=== PATIENT | female | born 1980 | race Caucasian/White ===

== ENCOUNTER 2017-03-24 13:20 | Emergency (ER) | payer BC, OTHER ==
[2017-03-24 13:33] VITALS: TEMP 98.8; BMI 27.8
--- NOTE | 2017-03-24 14:06 | PDOC ---
Attending Attestation - Resident Resident Name: Dru Sanchez - ED Attending Attestation I have performed the following: I have examined & evaluated the patient, The case was reviewed & discussed with the resident, I agree w/resident's findings & plan, Exceptions are as noted - HPI HPI: 03/24/17 14:06 36yo F unclear LMP but positive UPT 03/06/17 p/w vaginal spotting last night and vaginal bleeding since this morning. Mostly notices bleeding after urinating. Bleeding a/w LBP and cramping. Passing some clots, has been using pantyliners which she has been changing every 2 hours. Has first OB appointment at [facility] on Saturday. Denies fevers, chills, headache, CP, SOB, abd pain, LE edema, dysuria. - Physicial Exam PE: 03/24/17 14:35 GENERAL: Awake, alert, and fully oriented, in no acute distress HEAD: No signs of trauma EYES: PERRLA, EOMI, sclera anicteric, conjunctiva clear ENT: Auricles normal inspection, hearing grossly normal, nares patent, oropharynx clear without exudates. Moist mucosa NECK: Normal ROM, supple, no lymphadenopathy, JVD, or masses LUNGS: Breath sounds equal, clear to auscultation bilaterally. No wheezes, and no crackles HEART: Regular rate and rhythm, normal S1 and S2, no murmurs, rubs or gallops ABDOMEN: Soft, nontender, normoactive bowel sounds. No guarding, no rebound. No masses CENTER ADMINISTRATOR: performed with Dr. Sanchez. +blood in vaginal vault, no pooling in speculum, os is closed. No uterine or adnexal ttp. EXTREMITIES: Normal range of motion, no edema. No clubbing or cyanosis. No cords, erythema, or tenderness NEUROLOGICAL: Normal speech, cranial nerves intact, negative pronator drift, 5/ 5 strength in all 4 extremities, normal sensation to light touch in all 4 extremities, normal cerebellar exam, normal gait, normal reflexes and tone SKIN: Warm, Dry, normal turgor, no rashes or lesions noted. - Medical Decision Making 03/24/17 14:39 36-year-old female presents with of unknown dates as well as vaginal bleeding and low back pain and cramping. Exam with blood in the vaginal vault and closed os. Likely threatened versus vaginal bleeding of . -labs -type and screen -UA -TVUS -reassess 03/24/17 16:45 Laboratory Last Values WBC 8.8 K/mm3 (4.0-10.0) 03/24/17 14:00 RBC 4.29 M/mm3 (3.60-5.2) D 03/24/17 14:00 Hgb 12.8 GM/dL (10.7-15.3) D 03/24/17 14:00 Hct 38.4 % (32.4-45.2) D 03/24/17 14:00 MCV 89.5 fl (80-96) 03/24/17 14:00 MCH 29.9 pg (25.7-33.7) 03/24/17 14:00 MCHC 33.4 g/dl (32.0-36.0) 03/24/17 14:00 RDW 13.3 % (11.6-15.6) D 03/24/17 14:00 Plt Count 207 K/MM3 (134-434) D 03/24/17 14:00 MPV 8.0 fl (7.5-11.1) 03/24/17 14:00 Neutrophils % 73.1 % (42.8-82.8) 03/24/17 14:00 Lymphocytes % 18.8 % (8-40) 03/24/17 14:00 Monocytes % 6.0 % (3.8-10.2) 03/24/17 14:00 Eosinophils % 1.7 % (0-4.5) 03/24/17 14:00 Basophils % 0.4 % (0-2.0) 03/24/17 14:00 Sodium 140 mmol/L (136-145) 03/24/17 14:00 Potassium 3.7 mmol/L (3.5-5.1) 03/24/17 14:00 Chloride 105 mmol/L (98-107) 03/24/17 14:00 Carbon Dioxide 26 mmol/L (21-32) 03/24/17 14:00 Anion Gap 9 (8-16) 03/24/17 14:00 BUN 11 mg/dL (7-18) 03/24/17 14:00 Creatinine 0.6 mg/dL (0.55-1.02) 03/24/17 14:00 Creat Clearance w eGFR > 60 (>60) 03/24/17 14:00 Random Glucose 92 mg/dL (74-106) 03/24/17 14:00 Calcium 8.6 mg/dL (8.5-10.1) 03/24/17 14:00 Total Bilirubin 0.6 mg/dL (0.2-1.0) 03/24/17 14:00 AST 11 U/L (15-37) L 03/24/17 14:00 ALT 24 U/L (12-78) 03/24/17 14:00 Alkaline Phosphatase 76 U/L (45-117) 03/24/17 14:00 Total Protein 7.3 g/dl (6.4-8.2) 03/24/17 14:00 Albumin 4.0 g/dl (3.4-5.0) 03/24/17 14:00 Beta HCG, Quant 939.4 mIU/ml 03/24/17 14:00 Serum , Qual Positive 03/24/17 13:55 Urine Color Ltyellow 03/24/17 13:55 Urine Appearance Clear 03/24/17 13:55 Urine pH 6.0 (5.0-8.0) 03/24/17 13:55 Urine Protein Negative (NEGATIVE) 03/24/17 13:55 Urine Glucose (UA) Negative (NEGATIVE) 03/24/17 13:55 Urine Ketones Negative (NEGATIVE) 03/24/17 13:55 Urine Blood 3+ (NEGATIVE) H 03/24/17 13:55 Urine Nitrite Negative (NEGATIVE) 03/24/17 13:55 Urine Bilirubin Negative (NEGATIVE) 03/24/17 13:55 Urine Urobilinogen Negative mg/dL (0.2-1.0) 03/24/17 13:55 Ur Leukocyte Esterase Negative (NEGATIVE) 03/24/17 13:55 Urine RBC <1 /hpf (0-3) 03/24/17 13:55 Urine WBC 2 /hpf (3-5) 03/24/17 13:55 Ur Epithelial Cells Rare /hpf (FEW) 03/24/17 13:55 Urine Bacteria Rare /hpf (NONE SEEN) 03/24/17 13:55 Urine Mucus Rare 03/24/17 13:55 Blood Type O NEGATIVE 03/24/17 14:25 Antibody Screen Negative 03/24/17 14:25 Unit Expiration Date [id number] 03/24/17 14:25 Type and screen Rh-. Patient ordered for Rhogam. Labs otherwise unremarkable. UA negative for infection. Transvaginal ultrasound with intrauterine about 5 weeks and 5 days in age. No cardiac activity seen and thus differential includes embryonic demise versus viable . Patient was informed of the results of the ultrasound and plans to follow-up with her OB doctor on Saturday. She has not had any heavy bleeding while in the emergency department but continues to have some spotting. I gave the patient return precautions if her bleeding is heavy or if she has any new or concerning symptoms. I discussed the physical exam findings, ancillary test results and final diagnoses with the patient. I answered all of the patient's questions. The patient was satisfied with the care received and felt comfortable with the discharge plan and treatment plan. The patient will call their primary care physician within 24 hours to arrange follow-up and will return to the Emergency Department with any new, persistent or worsening symptoms.
[2017-03-24 14:23] LABS: BASOPHIL 0.4 % (0-2.0); EOSINOPHIL 1.7 % (0-4.5); MCH 29.9 pg (25.7-33.7); MCHC 33.4 g/dl (32.0-36.0); MEAN CELL VOLUME 89.5 fl (80-96); NEUTROPHILS 73.1 % (42.8-82.8); PLATELET COUNT 207 K/MM3 (134-434); RDW 13.3 % (11.6-15.6); WHITE BLOOD COUNT 8.8 K/mm3 (4.0-10.0)
[2017-03-24 14:28] LABS: URINE APPEARANCE CLEAR; URINE BILIRUBIN NEGATIVE (NEGATIVE); URINE BLOOD 3+ (NEGATIVE); URINE COLOR LTYELLOW; URINE GLUCOSE (UA) NEGATIVE (NEGATIVE); URINE KETONE NEGATIVE (NEGATIVE); URINE LEUK ESTERASE NEGATIVE (NEGATIVE); URINE NITRITE NEGATIVE (NEGATIVE); URINE PROTEIN NEGATIVE (NEGATIVE); URINE UROBILINOGEN NEGATIVE mg/dL (0.2-1.0)
--- NOTE | 2017-03-24 14:29 | PDOC ---
History of Present Illness - General History Source: Patient Exam Limitations: No Limitations - History of Present Illness Initial Comments: 03/24/17 14:29 The patient is a 36F with unsure LMP and positive preg test (03/06/17) who presents with bleeding that started last night. Last night the patient states that she had spotting which progressed to bleeding this morning. She is using panty liners for protection and changes them every hour. She has also been passing small clots. She notices the bleeding more after she uses the bathroom. She has not seen an OB since her last termination in Jun 2016. She has an appointment with an OB at [facility] on Saturday. All: none Soc: none <Dru Sanchez - Last Filed: 03/24/17 16:50> <Tati Perez - Last Filed: 03/24/17 16:57> - General Chief Complaint: Vaginal Bleeding Stated Complaint: POSSIBLE MISCARRIAGE Time Seen by Provider: 03/24/17 13:39 Past History - Past Medical History Asthma: No Cancer: No Cardiac Disorders: No Diabetes: No HTN: No Seizures: No Thyroid Disease: No - Psycho/Social/Smoking Cessation Hx Anxiety: No Suicidal Ideation: No Smoking History: Never smoked Have you smoked in the past 12 months: No Hx Alcohol Use: No Drug/Substance Use Hx: No Substance Use Type: None Hx Substance Use Treatment: No <Dru Sanchez - Last Filed: 03/24/17 16:50> <Tati Perez - Last Filed: 03/24/17 16:57> - Past Medical History Allergies/Adverse Reactions: Allergies Allergy/AdvReac Type Severity Reaction Status Date / Time No Known Allergies Allergy Verified 03/24/17 14:52 Review of Systems - Review of Systems Able to Perform ROS?: Yes Is the patient limited Divehi proficient: No Constitutional: No: Chills, Fever ABD/GI: Yes: Other (abd cramping). No: Nausea, Vomiting : Yes: Other (vaginal bleeding). No: Burning, Dysuria, Discharge Musculoskeletal: Yes: Back Pain (low) <Dru Sanchez - Last Filed: 03/24/17 16:50> *Physical Exam - Vital Signs Last Vital Signs Temp Pulse Resp BP Pulse Ox 98.8 F 93 H 20 117/68 100 03/24/17 13:31 03/24/17 13:31 03/24/17 13:31 03/24/17 13:31 03/24/17 13:31 - Physical Exam General Appearance: Yes: Nourished, Appropriately Dressed. No: Apparent Distress HEENT: positive: Normal ENT Inspection, Hearing Grossly Normal Neck: positive: Supple Respiratory/Chest: positive: Lungs Clear, Normal Breath Sounds. negative: Chest Tender, Respiratory Distress, Crackles, Rales, Rhonchi, Stridor, Wheezing Cardiovascular: positive: Regular Rhythm, Regular Rate, S1, S2. negative: Bradycardia, Tachycardia, Diastolic Murmur, Systolic Murmur Female Pelvic Exam: positive: normal external exam, cervical os closed Gastrointestinal/Abdominal: positive: Flat, Soft. negative: Tender, Increased Bowel Sounds, Protuberent, Distended, Guarding, Rebound Musculoskeletal: negative: CVA Tenderness, CVA Tenderness (R), CVA Tenderness (L ) Extremity: positive: Normal Inspection, Normal Range of Motion. negative: Swelling, Calf Tenderness Integumentary: positive: Dry, Warm Neurologic: positive: Fully Oriented, Alert, Normal Mood/Affect, Motor Strength 5/5 <Dru Sanchez - Last Filed: 03/24/17 16:50> - Vital Signs Last Vital Signs Temp Pulse Resp BP Pulse Ox 98.8 F 93 H 20 117/68 100 03/24/17 13:31 03/24/17 13:31 03/24/17 13:31 03/24/17 13:31 03/24/17 13:31 <Tati Perez - Last Filed: 03/24/17 16:57> ED Treatment Course - LABORATORY CBC & Chemistry Diagram: 03/24/17 14:00 03/24/17 14:00 <Dru Sanchez - Last Filed: 03/24/17 16:50> - LABORATORY CBC & Chemistry Diagram: 03/24/17 14:00 03/24/17 14:00 - ADDITIONAL ORDERS Additional order review: Laboratory Results 03/24/17 03/24/17 03/24/17 14:25 14:00 14:00 Sodium 140 Potassium 3.7 Chloride 105 Carbon Dioxide 26 Anion Gap 9 BUN 11 Creatinine 0.6 Creat Clearance w eGFR > 60 Random Glucose 92 Calcium 8.6 Total Bilirubin 0.6 AST 11 L ALT 24 Alkaline Phosphatase 76 Total Protein 7.3 Albumin 4.0 Beta HCG, Quant 939.4 Serum , Qual Urine Color Urine Appearance Urine pH Urine Protein Urine Glucose (UA) Urine Ketones Urine Blood Urine Nitrite Urine Bilirubin Urine Urobilinogen Ur Leukocyte Esterase Urine RBC Urine WBC Ur Epithelial Cells Urine Bacteria Urine Mucus Blood Type O NEGATIVE Antibody Screen Negative Unit Expiration Date [id number] 03/24/17 13:55 Sodium Potassium Chloride Carbon Dioxide Anion Gap BUN Creatinine Creat Clearance w eGFR Random Glucose Calcium Total Bilirubin AST ALT Alkaline Phosphatase Total Protein Albumin Beta HCG, Quant Serum , Qual Positive Urine Color Ltyellow Urine Appearance Clear Urine pH 6.0 Urine Protein Negative Urine Glucose (UA) Negative Urine Ketones Negative Urine Blood 3+ H Urine Nitrite Negative Urine Bilirubin Negative Urine Urobilinogen Negative Ur Leukocyte Esterase Negative Urine RBC <1 Urine WBC 2 Ur Epithelial Cells Rare Urine Bacteria Rare Urine Mucus Rare Blood Type Antibody Screen Unit Expiration Date 03/24/17 14:00 RBC 4.29 D MCV 89.5 MCHC 33.4 RDW 13.3 D MPV 8.0 Neutrophils % 73.1 Lymphocytes % 18.8 Monocytes % 6.0 Eosinophils % 1.7 Basophils % 0.4 <Tati Perez - Last Filed: 03/24/17 16:57> Medical Decision Making - Medical Decision Making 03/24/17 14:48 The patient is a 36F with unknown LMP who presents with irregular periods and bleeding. Her vaginal vault had blood but the cervical os was close. Pos preg test on March 06. I have ordered labs and will order imaging based on hcg quant. 03/24/17 16:50 US shows IUP with no cardiac activity with an estimated GA of 5w5d. Attending will speak with the patient about these results. <Dru Sanchez - Last Filed: 03/24/17 16:50> *DC/Admit/Observation/Transfer <Dru Sanchez - Last Filed: 03/24/17 16:50> - Discharge Dispostion Admit: No - Attestations Physician Attestion: 03/24/17 16:56 I, Dr. Tati Perez MD, attest that this document has been prepared under my direction and personally reviewed by me in its entirety. I further attest, that it accurately reflects all work, treatment, procedures and medical decision -making performed by me. <NyaramonDanielalbino - Last Filed: 03/24/17 16:57> Diagnosis at time of Disposition: Vaginal bleeding - Discharge Dispostion Disposition: HOME Condition at time of disposition: Stable - Patient Instructions Additional Instructions: Follow-up with your OB doctor as planned on Saturday03/27/17. Also follow-up with you primary care doctor within 1-2 days. If you are soaking through 3 pads every hour for 3 or more hours please return to the emergency department immediately.Also, return to the emergency department immediately for any new or concerning symptoms or if your symptoms get worse - Post Discharge Activity Work/School Note: Back to Work
[2017-03-24 14:30] LABS: URINE BACTERIA RARE /hpf (NONE SEEN); URINE MUCUS RARE; URINE RBC <1 /hpf (0-3); URINE WBC 2 /hpf (3-5)
[2017-03-24 14:51] LABS: ANION GAP 9 (8-16); CALCIUM 8.6 mg/dL (8.5-10.1); CO2 26 mmol/L (21-32); CREATININE 0.6 mg/dL (0.55-1.02); GLUCOSE,RANDOM 92 mg/dL (74-106); SGOT/AST 11 U/L (15-37); SGPT/ALT 24 U/L (12-78)
[2017-03-24 14:52] LABS: ALK PHOS 76 U/L (45-117); BILIRUBIN,TOTAL 0.6 mg/dL (0.2-1.0); TOT PROT 7.3 g/dl (6.4-8.2)
[2017-03-24] MEDS ORDERED: RHO(D) IMMUNE GLOBULIN 1,500 UNIT DISP.SYRIN IM ONE (16:18)
[2017-03-24 17:28] VITALS: BP 100/68; PULSE 72
== END 2017-03-24 17:28 | disposition home or self-care (01) ==
LOC: JER 13:20
PROC: 3E0234Z Introduction of Serum, Toxoid and Vaccine into Muscle, Percutaneous Approach (ICD-10-PCS; principal; 2017-03-24)
DX: O26.891 Other specified pregnancy related conditions, first trimester (principal); O20.8 Other hemorrhage in early pregnancy; O36.0910 Maternal care for other rhesus isoimmunization, first trimester, not applicable or unspecified; Z3A.01 Less than 8 weeks gestation of pregnancy
CPT/HCPCS: 36415; 76817-TC; 80053; 81003; 81015; 84702; 84703; 85025; 86850; 86900; 86901; 86999; 87086; 87491; 87591; 99282-25; J1561

== ENCOUNTER 2017-12-25 05:55 | Inpatient (IN) | payer BC, OTHER ==
[2017-12-25] MEDS ORDERED: AMPICILLIN - 2 GM in SODIUM CHLORIDE 100 ML IVPB ONE (06:00)
[2017-12-25] MEDS ORDERED: DEXTROSE 5%-LACTATED RINGERS 1,000 ML IV ONE (06:05)
[2017-12-25 06:34] VITALS: BMI 32.1
[2017-12-25 07:20] LABS: BASO % 0.3 % (0-2.0); EOS % 0.9 % (0-4.5); HEMATOCRIT 35.4 % (32.4-45.2); HEMOGLOBIN 11.9 GM/dL (10.7-15.3); LYMPH % 10.9 % (8-40); MCHC 33.7 g/dl (32.0-36.0); MEAN CELL VOLUME 85.8 fl (80-96); MEAN PLT VOLUME 8.4 fl (7.5-11.1); MONO % 5.3 % (3.8-10.2); NEUT % 82.6 % (42.8-82.8); PLATELET COUNT 203 K/MM3 (134-434); RBC 4.12 M/mm3 (3.60-5.2); WHITE BLOOD COUNT 13.3 K/mm3 (4.0-10.0)
[2017-12-25] MEDS ORDERED: ELECTROLYTE-148 SOLN 1,000 ML IV SCH (07:30)
[2017-12-25] MEDS ORDERED: FENTANYL/BUPIVACAINE/NS/PF - PCEA - 50 ML DISP.SYRIN EP ONE (07:33)
[2017-12-25 07:40] LABS: INR 0.9 (0.82-1.09); PROTHROMBIN TIME (PATIENT) 10.2 SEC (9.7-13.0)
--- NOTE | 2017-12-25 07:41 | HP ---
Past Medical History - Primary Care Physician PCP:: Kirk Kimball - Admission Chief Complaint: 37yo P6 with at EGA 39.5wks with spontaneous active labor. 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: Alzheimer's, CVA, Dementia, Migraine, Multiple Sclerosis, Peripheral Neuropathy, Parkinson's, Seizure, Syncope, TIA, Vertigo, Other Cardiovascular: No: AFIB, Aneurysm, Aortic Insufficiency, Aortic Stenosis, CAD, CHF, Deep Vein Thrombosis, HTN, Hyperlipdemia, MS, Mitral Insufficiency, Mitral Stenosis, Murmur, Pulmonary Hypertension, Other Pulmonary: No: Asthma, Bronchitis, Cancer, COPD, O2 Dependent, Pneumonia, Previously Intubated, Pulmonary Embolus, Pulmonary Fibrosis, Sleep Apnea, Other Gastrointestinal: No: Ascites, Cancer, Constipation, Crohn's Disease, Diverticulitis, Diverticulosis, Esophageal Varices, Gastritis, GERD, GI Bleed, Hemorrhoids, Hiatal Hernia, Inflamatory Bowel Disease, Irritable Bowel Disease, Pancreatitis, Peptic Ulcer Disease, Ulcerative Colitis, Other Hepatobiliary: No: Cirrhosis, Cholelithiasis, Cholecystitis, Choledocholithiasis , Hepatitis A, Hepatitis B, Hepatitis C, Other Renal/: No: Renal Failure, Renal Inusuff, BPH, Cancer, Hematuria, Hemodialysis , Neurogenic Bladder, Renal Calculi, UTI, Other ...: 13 ...Para: 6 ( x 6) ...Term: 6 ...Spon : 2 ...Induced : 4 ...LMP: 02/05/17 ...EDC by Dates: 11/12/17 ...EDC by Sono: 12/27/17 Heme/Onc: No: Anemia, B12 Deficiency, Bleeding Disorder, Cancer, Current Chemotherapy, Current Radiation Therapy, Hemochromatosis, Hypercoaguable State, Myeloproliferative Synd, Sickle Cell Disease, Sickle Cell Trait, Thrombocytopenia, Other Infectious Disease: No: AIDS, C-Diff, Herpes Zoster, HIV, MRSA, STD's, Tuberculosis, VREF, Other Psych: No: Addictions, Anxiety, Bipolar, Depression, Panic, Psychosis, Schizophrenia, Other Musculoskeletal: No: Bursitis, Chronic low back pain, Hemiparesis, Hemiplegia, Osteoarthritis, Paraplegia, Other Rheumatology: No: Fibromyalgia, Gout, Lupus, Rheumatoid Arthritis, Sarcoidosis, Vasculitis, Other ENT: No: Allergic Rhinitis, Sinusitis, Other Endocrine: No: Robinson's Disease, Glenburn's Disease, Diabetes Insipidus, Diabetes Mellitus, Hyperparathyroidism, Hyperthyroidism, Hypothyroidism, Osteopenia, SIADH, Other Dermatology: No: Basal Cell, Cellulitis, Eczema, Melanoma, Psoriasis, Squamous Cell, Other - Past Surgical History Past Surgical History: Yes: None Hx Myomectomy: No Hx Transabdominal Cerclage: No - Smoking History Smoking history: Never smoked Have you smoked in the past 12 months: No - Alcohol/Substance Use Hx Alcohol Use: No History of Substance Use: reports: None - Social History Usual Living Arrangement: Yes: With Spouse, With Child ADL: Independent History of Recent Travel: No Home Medications - Allergies Allergies/Adverse Reactions: Allergies Allergy/AdvReac Type Severity Reaction Status Date / Time No Known Allergies Allergy Verified 03/24/17 14:52 - Home Medications Home Medications: Ambulatory Orders 19 Tablet 1 tab PO DAILY 12/25/17 Family Disease History - Family Disease History Family History: Denies Review of Systems - Review of Systems Constitutional: reports: Other (Labor) Eyes: reports: No Symptoms HENT: reports: No Symptoms Neck: reports: No Symptoms Cardiovascular: reports: No Symptoms Respiratory: reports: No Symptoms Gastrointestinal: reports: No Symptoms Genitourinary: reports: No Symptoms Breasts: reports: No Symptoms Reported Musculoskeletal: reports: No Symptoms Integumentary: reports: No Symptoms Neurological: reports: No Symptoms Endocrine: reports: No Symptoms Hematology/Lymphatic: reports: No Symptoms Psychiatric: reports: No Symptoms Pain Intensity: 8 Physical Exam - Maternity Vital Signs: Vital Signs Temperature 98.3 F 12/25/17 06:38 Pulse Rate 102 H 12/25/17 06:38 Respiratory Rate 20 12/25/17 06:38 Blood Pressure 118/72 12/25/17 06:38 O2 Sat by Pulse Oximetry (%) Constitutional: Yes: Well Nourished, No Distress, Calm Eyes: Yes: WNL, Conjunctiva Clear HENT: Yes: WNL, Atraumatic, Normocephalic Neck: Yes: WNL, Supple, Trachea Midline Cardiovascular: Yes: WNL, Regular Rate and Rhythm Lungs: Clear to auscultation, Normal air movement Breast(s): Yes: WNL - Abdominal Exam/OB Fundal Height: 39 Number of Fetuses: Single Presentation: Vertex Contractions: Yes Regularity: Regular Intensity: Mod/Strong Monitor Mode: External Heart Rate (range): 130 Heart Rate Location: Midline Category: I Accelerations: Uniform Decelerations: None - Vaginal Exam/OB Vaginal Bleediing: No Speculum Exam: No Dilatation (cm): 5 Effacement (%): 90 Amniotic Membrane Status: Intact Presentation: Vertex/Position Station: 0 - Physical Exam Musculoskeletal: Yes: WNL Extremities: Yes: WNL Edema: No Integumentary: Yes: WNL Deep Tendon Reflex Grade: Normal +2 ...Motor Strength: WNL Psychiatric: Yes: WNL, Alert, Oriented - Labs Lab Results: CBC, BMP 12/25/17 07:05 Hemorrhage Risk Assessment - Risk Factors Medium Risk Factors: Yes: Greater than 4 previous births High Risk Factors: Yes: None Risk Score: 1 Risk Level: Medium Risk Imaging - Results Ultrasound: Report Reviewed Assessment/Plan 37yo P6 with at EGA 39.5wks with spontaneous active labor. Pt requested epidural. Fetus with category I tracing and requires no intervention. Abx given for GBS prophylaxis. Anticipate .
[2017-12-25 07:43] LABS: ACTIVATED PTT 17.7 SECONDS (26.9-34.4)
[2017-12-25 07:54] LABS: ANION GAP 9 (8-16); BLOOD UREA NITROGEN 10 mg/dL (7-18); CALCIUM 8.3 mg/dL (8.5-10.1); CHLORIDE 107 mmol/L (98-107); CO2 21 mmol/L (21-32); CREATININE 0.7 mg/dL (0.55-1.02); GLUCOSE,RANDOM 88 mg/dL (74-106); SODIUM 137 mmol/L (136-145)
--- NOTE | 2017-12-25 08:33 | PN ---
Ante-Partal Exam - Subjective Subjective: No complaints, s/p epidural Vital Signs: Vital Signs Temperature 98.3 F 12/25/17 06:38 Pulse Rate 102 H 12/25/17 06:38 Respiratory Rate 20 12/25/17 06:38 Blood Pressure 118/72 12/25/17 06:38 O2 Sat by Pulse Oximetry (%) Bleeding: No Headache: No Visual changes: No Right upper quadrant pain: No Pain (scale 1-10): 2 - Contractions Contractions: Yes Regularity: Regular Intensity: Moderate Monitor Mode: External - Exam during Labor Heart Rate: 140 Variability: Moderate Heart Rate Location: Midline Category: I Monitor Accelerations: Present Monitor Decelerations: None Exam: Vaginal Dilatation (cm): 9 Effacement (%): 90 Amniotic Membrane Status: Ruptured (AROM) Amniotic Fluid: Clear Presentation: Vertex Station: 0 - Intrapartum Hemorrhage Risk High Risk Factors: None Risk Score: 0 Risk Level: Low Risk - Assessment/Plan Assessment/Plan: 37yo P6 with active labor. Fetus requires no intervention. Labor progressing
[2017-12-25] MEDS ORDERED: NALOXONE HCL 0.4 MG/ML VIAL IVPUSH PRN (08:35)
[2017-12-25] MEDS ORDERED: OXYTOCIN 20 UNITS in 0.9% NS 20 UNIT/1,000 ML INFUS.BAG IV ONE (08:37)
[2017-12-25] MEDS ORDERED: LIDOCAINE HCL 1% PRESERVATIVE FREE - 30ML VIAL ONE (08:37)
[2017-12-25] MEDS ORDERED: FENTANYL/BUPIVACAINE/NS/PF - PCEA - 50 ML DISP.SYRIN EP SCH (08:45)
[2017-12-25] MEDS ORDERED: OXYTOCIN 30 UNITS in 0.9% NS 30 UNIT/500 ML INFUS.BAG IVPB ONE (08:59)
[2017-12-25] MEDS ORDERED: IBUPROFEN 600 MG TABLET (FP) PO PRN (10:39)
[2017-12-25] MEDS ORDERED: BENZOCAINE 28 GM HEMORRHOIDAL OINTMENT TP PRN (10:39)
[2017-12-25] MEDS ORDERED: WITCH HAZEL 50% (TUCKS) 40 PAD/JAR PAD TP PRN (10:39)
[2017-12-25] MEDS ORDERED: BISACODYL 10 MG SUPP.RECT RC PRN (10:39)
[2017-12-25] MEDS ORDERED: BENZOCAINE 20% 57 GM BOTTLE TP PRN (10:39)
[2017-12-25] MEDS ORDERED: METHYLERGONOVINE MALEATE 0.2 MG/1 ML AMP IM PRN (10:39)
[2017-12-25] MEDS ORDERED: ACETAMINOPHEN 325 MG TABLET (FP) PO PRN (10:39)
[2017-12-25] MEDS ORDERED: OXYTOCIN 30 UNITS in 0.9% NS 30 UNIT/500 ML INFUS.BAG IVPB SCH (10:45)
[2017-12-25] MEDS ORDERED: OXYTOCIN 20 UNITS in 0.9% NS 20 UNIT/1,000 ML INFUS.BAG IV SCH (10:45)
[2017-12-25] MEDS ORDERED: TUBERCULIN PPD 5 TU/0.1ML SYRINGE (IN PATIENT USE ONLY) ID ONE (11:45)
--- NOTE | 2017-12-25 12:04 | PN ---
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
[2017-12-26] MEDS: PRENATAL VITAMINS W/ FOLIC ACID TABLET (FP) PO SCH (09:51)
--- NOTE | 2017-12-26 09:57 | PN ---
Post Progress Note - Subjective Subjective: Patient without acute complaints. Reports tolerating oral intake without nausea or vomiting. Ambulating without dizziness. Denies fevers or chills. Pain well controlled with oral pain medication. without difficulty. Passing flatus. Post Day: 1 Type of Delivery: Vital Signs: Vital Signs Temperature 98.5 F 12/26/17 09:23 Pulse Rate 80 12/26/17 09:23 Respiratory Rate 18 12/26/17 09:23 Blood Pressure 111/75 12/26/17 09:23 O2 Sat by Pulse Oximetry (%) 100 12/25/17 10:50 Breast Exam: Yes: Soft Uterus: Yes: Fundus Firm Abdomen/GI: Yes: Abdomen soft, Passing flatus, Tolerating PO. No: Abdominal Distention, Tender Lochia: Yes: Serosa Lochia, amount: Small Extremities: Yes: Calves non-tender, Edema (+1) Activity: Ambulating - Labs Labs: CBC WBC 13.3 K/mm3 (4.0-10.0) H D 12/25/17 07:05 RBC 4.12 M/mm3 (3.60-5.2) 12/25/17 07:05 Hgb 11.9 GM/dL (10.7-15.3) 12/25/17 07:05 Hct 35.4 % (32.4-45.2) 12/25/17 07:05 MCV 85.8 fl (80-96) 12/25/17 07:05 MCH 29.0 pg (25.7-33.7) 12/25/17 07:05 MCHC 33.7 g/dl (32.0-36.0) 12/25/17 07:05 RDW 15.0 % (11.6-15.6) D 12/25/17 07:05 Plt Count 203 K/MM3 (134-434) 12/25/17 07:05 MPV 8.4 fl (7.5-11.1) 12/25/17 07:05 Neutrophils % 82.6 % (42.8-82.8) 12/25/17 07:05 Lymphocytes % 10.9 % (8-40) D 12/25/17 07:05 Monocytes % 5.3 % (3.8-10.2) 12/25/17 07:05 Eosinophils % 0.9 % (0-4.5) 12/25/17 07:05 Basophils % 0.3 % (0-2.0) 12/25/17 07:05 Nucleated RBC % 0 % (0-0) 12/25/17 07:05 Assessment/Plan 37 yo PPD # 1 s/p , afebrile, vital signs stable, doing well 1. Continue routine care. 2. AM CBC without anemia 3. Rh negative status, baby RH negative as well 4. Encourage ambulation 5. Continue oral pain medication 6. Anticipate discharge home day #2
[2017-12-26] MEDS ORDERED: DIPHTH,PERTUSS(ACELL),TET 0.5 ML DISP.SYRIN IM ONE (10:00)
[2017-12-26 10:26] LABS: BASO % 0.3 % (0-2.0); EOS % 0.7 % (0-4.5); HEMATOCRIT 31.1 % (32.4-45.2); HEMOGLOBIN 10.3 GM/dL (10.7-15.3); LYMPH % 14.2 % (8-40); MCH 28.9 pg (25.7-33.7); MCHC 33.2 g/dl (32.0-36.0); MEAN CELL VOLUME 86.9 fl (80-96); MEAN PLT VOLUME 8.4 fl (7.5-11.1); MONO % 4.9 % (3.8-10.2); NEUT % 79.9 % (42.8-82.8); PLATELET COUNT 199 K/MM3 (134-434); RBC 3.58 M/mm3 (3.60-5.2); RDW 15.5 % (11.6-15.6); WHITE BLOOD COUNT 10.4 K/mm3 (4.0-10.0)
[2017-12-26] MEDS ORDERED: SENNOSIDES/DOCUSATE COMBO (SENNA PLUS) TABLET (UD) PO PRN (22:00)
--- NOTE | 2017-12-27 06:48 | DS ---
Physical Exam-[facility] Vital Signs: Vital Signs Temperature 98.3 F 12/26/17 22:00 Pulse Rate 102 H 12/26/17 22:00 Respiratory Rate 18 12/26/17 22:00 Blood Pressure 113/72 12/26/17 22:00 O2 Sat by Pulse Oximetry (%) 100 12/25/17 10:50 Constitutional: Yes: Well Nourished, No Distress, Calm Eyes: Yes: WNL, Conjunctiva Clear, EOM Intact HENT: Yes: WNL, Atraumatic, Normocephalic Neck: Yes: WNL, Supple, Trachea Midline Cardiovascular: Yes: WNL, Regular Rate and Rhythm Respiratory: Yes: WNL, Regular, CTA Bilaterally Gastrointestinal: Yes: WNL ...Rectal Exam: Yes: WNL Renal/: Yes: WNL ....Post : Yes: Uterus firm, Uterus non-tender, Slight lochia rubra Breast(s): Yes: WNL Musculoskeletal: Yes: WNL Extremities: Yes: WNL Edema: No Integumentary: Yes: WNL Neurological: Yes: WNL, Alert, Oriented ...Motor Strength: WNL Psychiatric: Yes: WNL, Alert, Oriented Labs: CBC, BMP 12/26/17 09:30 12/25/17 07:05 Delivery - Delivery Vaginal Delivery: No Problems, Spontaneous Type of Anesthesia: Epidural Episiotomy/Laceration: None EBL (cc): 300 Delivery, Single - Stages of Labor Date 1st Stage Initiatied: 12/25/17 Time 1st Stage Initiated: 01:00 Date 2nd Stage Initiated: 12/25/17 Time 2nd Stage Initiated: 08:55 Date of Delivery: 12/25/17 Time of Delivery: 09:08 Time Placenta Delivered: 09:10 Placenta: Yes: Spontaneous, Normal Configuration - 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 Gender: Female Weight: 6 lb 3 oz Position: Left, OA Total Hours ROM (Hrs/Mins): 40min - 1 Minute Total Score: 9 5 Minutes Total Score: 9 - Feeding Plan Initial Plan: Exclusive throughout hospitalization Benefits of Exclusively reinforced: Yes Discharge Summary Reason For Visit: ADMIT LABOR Procedures: Principal: Other Procedures: no complication Condition: Good - Instructions Diet, Activity, Other Instructions: regular diet, follow up office 4 weeks, if fever, pain ,heavy vaginal bleeding call MD Referrals: Kirk Kimball MD [Staff Physician] - - Home Medications Comprehensive Discharge Medication List: Ambulatory Orders 19 Tablet 1 tab PO DAILY 12/25/17 Ibuprofen [Motrin -] 600 mg PO QID #28 tablet 12/26/17
[2017-12-27 08:53] VITALS: BP 106/59; PULSE 71; TEMP 98.9
[2017-12-27] MEDS: PRENATAL VITAMINS W/ FOLIC ACID TABLET (FP) PO SCH (09:11)
== END 2017-12-27 15:40 | disposition home or self-care (01) | DRG 775 ==
LOC: JLDR 05:55 → J3W 11:45
PROVIDERS: ADMIT Obstetrics & Gynecology; ATTEND Obstetrics & Gynecology
PROC: 10E0XZZ Delivery of Products of Conception, External Approach (ICD-10-PCS; principal; 2017-12-25)
DX: O80 Encounter for full-term uncomplicated delivery (principal); Z22.330 Carrier of Group B streptococcus; Z3A.39 39 weeks gestation of pregnancy; Z37.0 Single live birth
CPT/HCPCS: 36415; 59409; 80048; 85025; 85610; 85730; 86593; 86850; 86900; 86901

== ENCOUNTER 2020-01-23 21:35 | Inpatient (IN) | payer OTHER ==
[2020-01-23] MEDS ORDERED: DEXTROSE 5%-LACTATED RINGERS 500 ML IV ONE (22:00)
[2020-01-23] MEDS ORDERED: DEXTROSE 5%-LACTATED RINGERS 1,000 ML IV SCH ×2 (22:30→23:30)
[2020-01-23 22:38] LABS: BASO % 0.4 % (0-2.0); EOS % 1.4 % (0-4.5); HEMATOCRIT 33.8 % (32.4-45.2); LYMPH % 18.2 % (8-40); MCH 27.6 pg (25.7-33.7); MCHC 32.6 g/dl (32.0-36.0); MEAN CELL VOLUME 84.8 fl (80-96); MEAN PLT VOLUME 8.6 fl (7.5-11.1); MONO % 6.1 % (3.8-10.2); NEUT % 73.9 % (42.8-82.8); PLATELET COUNT 192 K/MM3 (134-434); RBC 3.98 M/mm3 (3.60-5.2); RDW 15.7 % (11.6-15.6); WHITE BLOOD COUNT 10.2 K/mm3 (4.0-10.0)
[2020-01-23 22:46] VITALS: BMI 32.9
[2020-01-23 22:46] LABS: PROTHROMBIN TIME (PATIENT) 11.8 SEC (9.7-13.0)
[2020-01-23 22:49] LABS: ACTIVATED PTT 22.8 SECONDS (25.2-36.5)
[2020-01-23 23:03] LABS: BLOOD UREA NITROGEN 8.1 mg/dL (7-18); CALCIUM 8.8 mg/dL (8.5-10.1); CREATININE 0.7 mg/dL (0.55-1.3); POTASSIUM 3.8 mmol/L (3.5-5.1)
--- NOTE | 2020-01-23 23:25 | HP ---
Past Medical History - Primary Care Physician PCP:: Kirk Kimball - Admission Chief Complaint: 39yo with at EGA 39w2d admitted with SROM in spontaneous labor. 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: No: Alzheimer's, CVA, Dementia, Migraine, Multiple Sclerosis, Peripheral Neuropathy, Parkinson's, Seizure, Syncope, TIA, Vertigo, Other Cardiovascular: No: AFIB, Aneurysm, Aortic Insufficiency, Aortic Stenosis, CAD, CHF, Deep Vein Thrombosis, HTN, Hyperlipdemia, OH, Mitral Insufficiency, Mitral Stenosis, Murmur, Pulmonary Hypertension, Other Pulmonary: No: Asthma, Bronchitis, Cancer, COPD, O2 Dependent, Pneumonia, Previously Intubated, Pulmonary Embolus, Pulmonary Fibrosis, Sleep Apnea, Other Gastrointestinal: No: Ascites, Cancer, Constipation, Crohn's Disease, Diverticulitis, Diverticulosis, Esophageal Varices, Gastritis, GERD, GI Bleed, Hemorrhoids, Hiatal Hernia, Inflamatory Bowel Disease, Irritable Bowel Disease, Pancreatitis, Peptic Ulcer Disease, Ulcerative Colitis, Other Hepatobiliary: No: Cirrhosis, Cholelithiasis, Cholecystitis, Choledocholithiasis, Hepatitis A, Hepatitis B, Hepatitis C, Other Renal/: No: Renal Failure, Renal Inusuff, BPH, Cancer, Hematuria, Hemodialysis, Neurogenic Bladder, Renal Calculi, UTI, Other ...: 13 ...Para: 7 ...Term: 7 ...: 0 ...Spon : 3 ...Induced : 2 ...Living Children: 7 ...Multiple Gestation: 0 ...LMP: 04/30/19 ... Weeks Gestation by Dates: 39.2 ...EDC by Dates: 02/04/20 ...EDC by Sono: 01/28/20 Heme/Onc: No: Anemia, B12 Deficiency, Bleeding Disorder, Cancer, Current Chemotherapy, Current Radiation Therapy, Hemochromatosis, Hypercoaguable State, Myeloproliferative Synd, Sickle Cell Disease, Sickle Cell Trait, Thrombocytopenia, Other Infectious Disease: No: AIDS, C-Diff, Herpes Zoster, HIV, MRSA, STD's, Tuberculosis, VREF, Other Psych: No: Addictions, Anxiety, Bipolar, Depression, Panic, Psychosis, Schizophrenia, Other Musculoskeletal: No: Bursitis, Chronic low back pain, Hemiparesis, Hemiplegia, Osteoarthritis, Paraplegia, Other Rheumatology: No: Fibromyalgia, Gout, Lupus, Rheumatoid Arthritis, Sarcoidosis, Vasculitis, Other ENT: No: Allergic Rhinitis, Sinusitis, Other Endocrine: No: Pitts[place]'s Disease, Kody's Disease, Diabetes Insipidus, Diabetes Mellitus, Hyperparathyroidism, Hyperthyroidism, Hypothyroidism, Osteopenia, SIADH, Other Dermatology: No: Basal Cell, Cellulitis, Eczema, Melanoma, Psoriasis, Squamous Cell, Other - Past Surgical History Past Surgical History: Yes: None Hx Myomectomy: No Hx Transabdominal Cerclage: No - Smoking History Smoking history: Never smoked Have you smoked in the past 12 months: No - Alcohol/Substance Use Hx Alcohol Use: No History of Substance Use: reports: None - Social History Usual Living Arrangement: Yes: With Spouse, With Child Do you think of yourself as: Straight/Heterosexual ADL: Independent History of Recent Travel: No Home Medications - Allergies Allergies/Adverse Reactions: Allergies Allergy/AdvReac Type Severity Reaction Status Date / Time No Known Allergies Allergy Verified 01/23/20 23:08 - Home Medications Home Medications: Ambulatory Orders 19 Tablet 1 tab PO DAILY 12/25/17 Ibuprofen [Motrin -] 600 mg PO QID #28 tablet 12/26/17 Family Medical History Family History: Unremarkable Review of Systems - Review of Systems Constitutional: reports: No Symptoms Eyes: reports: No Symptoms HENT: reports: No Symptoms Neck: reports: No Symptoms Cardiovascular: reports: No Symptoms Respiratory: reports: No Symptoms Gastrointestinal: reports: No Symptoms Genitourinary: reports: Other (Leaking fluids, contractions.) Breasts: reports: No Symptoms Reported Musculoskeletal: reports: No Symptoms Integumentary: reports: No Symptoms Neurological: reports: No Symptoms Endocrine: reports: No Symptoms Hematology/Lymphatic: reports: No Symptoms Psychiatric: reports: No Symptoms Pain Intensity: 6 Physical Exam - Maternity Vital Signs: Vital Signs Temperature 99.4 F 01/23/20 21:35 Pulse Rate 89 01/23/20 21:35 Respiratory Rate 18 01/23/20 21:35 Blood Pressure 129/79 01/23/20 21:35 O2 Sat by Pulse Oximetry (%) Constitutional: Yes: Well Nourished, No Distress, Calm Eyes: Yes: WNL, Conjunctiva Clear, EOM Intact HENT: Yes: WNL, Atraumatic, Normocephalic Neck: Yes: WNL, Supple, Trachea Midline Cardiovascular: Yes: WNL, Regular Rate and Rhythm Lungs: Clear to auscultation, Normal air movement Breast(s): Yes: WNL - Abdominal Exam/OB Fundal Height: 40 Number of Fetuses: Single Presentation: Vertex Contractions: Yes Regularity: Irregular Intensity: Moderate Monitor Mode: External Heart Rate (range): 120 Heart Rate Location: Midline Category: II Accelerations: Non-Uniform Decelerations: Variable (occasional) - Vaginal Exam/OB Vaginal Bleeding: No Speculum Exam: No Dilatation (cm): 4 Effacement (%): 50 Amniotic Membrane Status: Leaking Amniotic Fluid: Yes: Clear Presentation: Vertex/Position Station: -2 (Gynecoid pelvimetry) - Physical Exam Musculoskeletal: Yes: WNL Extremities: Yes: WNL Edema: No Integumentary: Yes: WNL ...Motor Strength: WNL Psychiatric: Yes: WNL, Alert, Oriented - Labs Lab Results: CBC, BMP 01/23/20 22:25 01/23/20 22:25 Hemorrhage Risk Assessment - Risk Factors Medium Risk Factors: Yes: Greater than 4 previous births High Risk Factors: Yes: None Risk Score: 1 Risk Level: Medium Risk Imaging - Results Ultrasound: Report Reviewed Assessment/Plan 39yo P7 with at EGA 39w2d admitted with SROM in spontaneous labor. Labor in early active phase. Fetus with Category II tracing due to occasional mild variable decels. Plan to monitor labor progress. Risk of uterine atony discussed with pt.
[2020-01-24] MEDS ORDERED: ELECTROLYTE-148 SOLN 1,000 ML IV SCH
[2020-01-24] MEDS ORDERED: PCA PUMP NR ONE (00:11)
[2020-01-24] MEDS ORDERED: FENTANYL/BUPIVACAINE/NS/PF - PCEA - 50 ML DISP.SYRIN EP ONE (00:11)
[2020-01-24] MEDS ORDERED: NALOXONE HCL 0.4 MG/ML VIAL IVPUSH PRN (00:42)
[2020-01-24] MEDS ORDERED: FENTANYL/BUPIVACAINE/NS/PF - PCEA - 50 ML DISP.SYRIN EP SCH (00:45)
[2020-01-24] MEDS ORDERED: OXYTOCIN 20 UNITS in 0.9% NS 40 UNIT/2,000 ML INFUS.BAG IV ONE (04:36)
[2020-01-24] MEDS ORDERED: LIDOCAINE HCL 1% PRESERVATIVE FREE - 30ML VIAL ONE (06:06)
[2020-01-24] MEDS ORDERED: BENZOCAINE 20% 57 GM BOTTLE TP PRN (06:20)
[2020-01-24] MEDS ORDERED: BISACODYL 10 MG SUPP.RECT RC PRN (06:20)
[2020-01-24] MEDS ORDERED: WITCH HAZEL 50% (TUCKS) 40 PAD/JAR PAD TP PRN (06:20)
[2020-01-24] MEDS ORDERED: METHYLERGONOVINE MALEATE 0.2 MG/1 ML AMP IM PRN (06:20)
[2020-01-24] MEDS ORDERED: BENZOCAINE 28 GM HEMORRHOIDAL OINTMENT TP PRN (06:20)
[2020-01-24] MEDS ORDERED: OXYTOCIN 10 UNITS/ML VIAL ONE (06:28)
[2020-01-24] MEDS ORDERED: OXYTOCIN 20 UNITS in 0.9% NS 20 UNIT/1,000 ML INFUS.BAG IV SCH (06:30)
[2020-01-24] MEDS ORDERED: OXYTOCIN 10 UNITS/ML VIAL IM ONE (06:48)
[2020-01-24] MEDS ORDERED: ACETAMINOPHEN 325 MG TABLET (FP) ONE (07:18)
[2020-01-24] MEDS ORDERED: IBUPROFEN 600 MG TABLET (FP) PO ONE (07:18)
[2020-01-24 07:28] LABS: CORD BASE EXCESS -10.1 mmol/L (0-2); CORD HCO3 18.9 mmHg (20-29); CORD PCO2 52.5 mmHg (30-78); CORD pH 7.175 (7.14-7.44)
[2020-01-24 07:29] LABS: CORD BASE EXCESS -11.4 mmol/L (0-2); CORD PCO2 78.6 mmHg (30-78); CORD pH 7.045 (7.14-7.44)
[2020-01-24] MEDS: IBUPROFEN 600 MG TABLET (FP) PO PRN ×2 (07:30→14:24)
[2020-01-24] MEDS: ACETAMINOPHEN 325 MG TABLET (FP) PO PRN ×2 (07:30→14:25)
[2020-01-24] MEDS: PRENATAL VITAMINS W/ FOLIC ACID TABLET (FP) PO SCH (11:55)
[2020-01-24] MEDS ORDERED: oxyCODONE HCL 5 MG TABLET PO ONE (15:45)
[2020-01-24] MEDS ORDERED: oxyCODONE HCL 5 MG TABLET PO PRN ×2 (18:15→18:35)
--- NOTE | 2020-01-25 08:39 | PN ---
Delivery - Delivery Vaginal Delivery: No Problems, Spontaneous Type of Anesthesia: Epidural Episiotomy/Laceration: 1st degree EBL (cc): 300 Delivery, Single - Stages of Labor Date 1st Stage Initiatied: 01/23/20 Time 1st Stage Initiated: 15:30 Date 2nd Stage Initiated: 01/24/20 Time 2nd Stage Initiated: 05:45 Date of Delivery: 01/24/20 Time of Delivery: 06:02 Time Placenta Delivered: 06:12 Placenta: Yes: Spontaneous, Normal Configuration - Condition of Recruitment Advertising Manager/Soccer Coach Present: No Gender: Male Position: OP Total Hours ROM (Hrs/Mins): 14h 32m - 1 Minute Total Score: 8 5 Minutes Total Score: 9 - Feeding Plan Initial Plan: Elected not to breastfeed exclusively throughout hospitalization Benefits of Exclusively reinforced: Yes
[2020-01-25 08:50] LABS: BASO % 0.3 % (0-2.0); EOS % 1.6 % (0-4.5); HEMATOCRIT 28.6 % (32.4-45.2); HEMOGLOBIN 9.3 GM/dL (10.7-15.3); LYMPH % 18.9 % (8-40); MCH 27.6 pg (25.7-33.7); MCHC 32.4 g/dl (32.0-36.0); MEAN CELL VOLUME 85.2 fl (80-96); MEAN PLT VOLUME 8.7 fl (7.5-11.1); MONO % 6.4 % (3.8-10.2); NEUT % 72.8 % (42.8-82.8); PLATELET COUNT 153 K/MM3 (134-434); RBC 3.36 M/mm3 (3.60-5.2); RDW 15.7 % (11.6-15.6); WHITE BLOOD COUNT 8.8 K/mm3 (4.0-10.0)
[2020-01-25] MEDS: PRENATAL VITAMINS W/ FOLIC ACID TABLET (FP) PO SCH (09:10)
--- NOTE | 2020-01-25 11:07 | DS ---
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: Vital Signs Temperature 98.6 F 01/25/20 07:40 Pulse Rate 78 01/25/20 07:40 Respiratory Rate 18 01/25/20 07:40 Blood Pressure 104/64 01/25/20 07:40 O2 Sat by Pulse Oximetry (%) 100 01/24/20 07:00 Constitutional: Yes: Well Nourished, No Distress, Calm Eyes: Yes: WNL, Conjunctiva Clear, EOM Intact HENT: Yes: WNL, Atraumatic, Normocephalic Neck: Yes: WNL, Supple, Trachea Midline Cardiovascular: Yes: WNL, Regular Rate and Rhythm Respiratory: Yes: WNL, Regular, CTA Bilaterally Gastrointestinal: Yes: WNL, Normal Bowel Sounds, Soft ...Rectal Exam: Yes: Deferred Renal/: Yes: WNL Internal Exam Deferred: Yes ....Post : Yes: Uterus firm, Uterus non-tender, Slight lochia rubra Breast(s): Yes: WNL Musculoskeletal: Yes: WNL Extremities: Yes: WNL Edema: Yes Edema: LLE: Trace, RLE: Trace Integumentary: Yes: WNL Neurological: Yes: WNL, Alert, Oriented ...Motor Strength: WNL Psychiatric: Yes: WNL, Alert, Oriented Labs: CBC, BMP 01/25/20 08:05 01/23/20 22:25 Delivery - Delivery Vaginal Delivery: No Problems, Spontaneous Type of Anesthesia: Epidural Episiotomy/Laceration: 1st degree EBL (cc): 300 Delivery, Single - Stages of Labor Date 1st Stage Initiatied: 01/23/20 Time 1st Stage Initiated: 15:30 Date 2nd Stage Initiated: 01/24/20 Time 2nd Stage Initiated: 05:45 Date of Delivery: 01/24/20 Time of Delivery: 06:02 Time Placenta Delivered: 06:12 Placenta: Yes: Spontaneous, Normal Configuration - Condition of Infant 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 Procedures: Principal: SELENE Hospital Course: Normal recovery Plan of Treatment: Normal recovery Goals: Normal recovery Condition: Good - Instructions Diet, Activity, Other Instructions: Physical activity Resume your normal everyday activity as tolerated no heavy lifting or exercise until seen by your surgeon. You may walk unlimited emerson of and climb stairs. You may resume driving the car when you feel safe and comfortable behind the wheel. No sexual activity as instructed. Wound care If you have a bandage, leave it on, and keep dry for 48-72 hours. After that time discard the outer bandage. If they are tapes on the skin under the out of bandage leave them in place. They will peel off in the next 7 to 10 days. Do Not Peel them off. You may shower the day after surgery. If there are tapes present on the skin, you may shower over them. Diet There are no dietary restrictions. Eat healthy, high-fiber foods. Drink 6 to 8 glasses of liquid each day. This will assist in keeping your bowels are regular. Pain management You may take Tylenol or acetaminophen or Ibuprofen (for example, Motrin, Advil etc.) from my pain prescription medication is ordered should be taken as prescribed for moderate to severe pain. Call MD for any of the following: Severe pain not relieved by medication Fever of 101 or higher Excessive bleeding or drainage on dressing Inability to urinate Referrals: Kirk Kimball MD [Staff Physician] - Disposition: HOME - Home Medications Comprehensive Discharge Medication List: Ambulatory Orders 19 Tablet 1 tab PO DAILY 12/25/17 Ibuprofen [Motrin -] 600 mg PO QID #28 tablet 12/26/17 Prescription Drug Monitoring Program (I-STOP) results: I-STOP not reviewed
[2020-01-25] MEDS: IBUPROFEN 600 MG TABLET (FP) PO PRN (21:37)
[2020-01-25] MEDS: ACETAMINOPHEN 325 MG TABLET (FP) PO PRN (21:37)
[2020-01-25] MEDS ORDERED: SENNOSIDES/DOCUSATE COMBO (SENNA PLUS) TABLET (UD) PO PRN (22:00)
--- NOTE | 2020-01-26 08:35 | PN ---
Post Progress Note - Subjective Subjective: Seen and examined no complains Post Day: 2 Type of Delivery: Vital Signs: Vital Signs Temperature 98.0 F 01/25/20 22:00 Pulse Rate 77 01/25/20 22:00 Respiratory Rate 18 01/25/20 22:00 Blood Pressure 115/59 L 01/25/20 22:00 O2 Sat by Pulse Oximetry (%) 100 01/24/20 07:00 Breast Exam: Yes: Soft Uterus: Yes: Fundus Firm Abdomen/GI: Yes: Abdomen soft Lochia: Yes: Rubra Lochia, amount: Small Extremities: Yes: Calves non-tender Perineum: Yes: Intact Activity: Ambulating - Labs Labs: CBC WBC 8.8 K/mm3 (4.0-10.0) 01/25/20 08:05 RBC 3.36 M/mm3 (3.60-5.2) L 01/25/20 08:05 Hgb 9.3 GM/dL (10.7-15.3) L 01/25/20 08:05 Hct 28.6 % (32.4-45.2) L D 01/25/20 08:05 MCV 85.2 fl (80-96) 01/25/20 08:05 MCH 27.6 pg (25.7-33.7) 01/25/20 08:05 MCHC 32.4 g/dl (32.0-36.0) 01/25/20 08:05 RDW 15.7 % (11.6-15.6) H 01/25/20 08:05 Plt Count 153 K/MM3 (134-434) D 01/25/20 08:05 MPV 8.7 fl (7.5-11.1) 01/25/20 08:05 Absolute Neuts (auto) 6.4 K/mm3 (1.5-8.0) 01/25/20 08:05 Neutrophils % 72.8 % (42.8-82.8) 01/25/20 08:05 Lymphocytes % 18.9 % (8-40) 01/25/20 08:05 Monocytes % 6.4 % (3.8-10.2) 01/25/20 08:05 Eosinophils % 1.6 % (0-4.5) 06/29/20 08:05 Basophils % 0.3 % (0-2.0) 01/25/20 08:05 Nucleated RBC % 0 % (0-0) 01/25/20 08:05 Assessment/Plan 39yo P8 s/p VSS, Afebrile d/c home NPV x 6wks RTO 4-6wks
[2020-01-26 09:19] VITALS: BP 101/62; PULSE 90; TEMP 98.1
[2020-01-26] MEDS: PRENATAL VITAMINS W/ FOLIC ACID TABLET (FP) PO SCH (10:00)
== END 2020-01-26 11:15 | disposition home or self-care (01) | DRG 560 ==
LOC: JLDR 21:35 → J3W 01-24 09:26
PROVIDERS: ADMIT Obstetrics & Gynecology; ATTEND Obstetrics & Gynecology
PROC: 10E0XZZ Delivery of Products of Conception, External Approach (ICD-10-PCS; principal; 2020-01-25)
PROC: 0HQ9XZZ Repair Perineum Skin, External Approach (ICD-10-PCS; 2020-01-25)
DX: O70.0 First degree perineal laceration during delivery (principal); Z3A.39 39 weeks gestation of pregnancy; Z37.0 Single live birth
CPT/HCPCS: 36415; 36600; 59409; 72170-TC-FY; 80048; 82803; 85025; 85461; 85610; 85730; 86780; 86850; 86870; 86900; 86901; 86902; 86999; U0003